=== PATIENT | male | born 1940 | race Caucasian/White ===

== ENCOUNTER 2018-08-23 13:41 | Emergency (ER) | payer MEDICARE, BC ==
[~2018-08-23 13:41] MED LIST: ADAL20KI2 SQ; ALLO100T70 PO; ATOR40TA69 PO; CAR6.25 PO; CELE-1 PO; DAPA10TA PO; DES100PT PO; GABA-547 PO; INSU100I36 SQ; LIR18IPT SUBQ; LOSA-51 PO; METF-450 PO; TEST1.25 TD
[2018-08-23] MEDS ORDERED: PRED20TA6 PO (13:55)
--- NOTE | 2018-08-23 13:58 | ER Report ---
History and Physical Time Seen By MD: 13:58 Hx. of Stated Complaint: pt presents withc/o an eye issue, sob and weakness for 3 days HPI/ROS CHIEF COMPLAINT: Weakness, shortness of breath, swelling under left eye HISTORY OF PRESENT ILLNESS: 78-year-old male patient presents to emergency room with complaint of weakness, shortness of breath and swelling in the left eye. Patient states this been going on for the last 3 days. He states that he's had problems with surgery on his eyelids. He states that he had a stitch which came out under the right eye. He states it is very similar to what he is expressing an of the left eye. He states it is tender to the touch. He denies having any fevers, chills, nausea, vomiting or diarrhea. Patient states he did have a salve which he put on it. He states that he did not bring that with him when he came up to [place]. Patient states she's also felt very short of breath since ar riving here. He also states she's felt very weak. He states he initially was able to walk around and felt pretty good. However he states that for the last couple days he's just been laying around. REVIEW OF SYSTEMS: Respiratory: As noted above Cardiovascular: No chest pain, no palpitations. Gastrointestinal: No vomiting, no abdominal pain. Musculoskeletal: No back pain. Allergies: Coded Allergies: codeine (Unverified Allergy, Unknown, 08/23/18) levofloxacin (Unverified Adverse Reaction, Unknown, 08/23/18) TENDON RUPTURE Home Meds Active Scripts Mupirocin Calcium (BACTROBAN) 15 Gm Cream..g., 1 BELL TP TID for 7 Days, #1 TUBE Prov:ROSSANA BENNETTP 08/23/18 Amoxicillin/Pot Clav 875-125 Mg Tab (AUGMENTIN 875-125 TABLET) 1 Each Tablet, 1 TAB PO Q12H, #20 TAB Prov:ROSSANA BENNETTP 08/23/18 Reported Medications Infliximab (REMICADE) 100 Mg Soln, 100 MG IV 08/23/18 Clopidogrel Bisulfate (PLAVIX) 75 Mg Tablet, 1 TAB PO QDAY, TAB 08/23/18 Prednisone (PREDNISONE) 20 Mg Tablet, 20 MG PO QDAY, TAB 08/23/18 Metformin Hcl (METFORMIN HCL) 500 Mg Tablet, 3 TAB PO DAILY, TAB 08/17/15 Atorvastatin Calcium (ATORVASTATIN CALCIUM) 40 Mg Tablet, 1 TAB PO QDAY, TAB TAKE ONE TABLET BY MOUTH ONCE A DAY AT BED TIME 08/10/14 Gabapentin (GABAPENTIN) 100 Mg Capsule, 200 MG PO QPM, CAPSULE 08/10/14 Liraglutide (VICTOZA 3-ARNAUD) 18 Mg/3 Ml Injs, 18 MG SUBQ DAILY 08/10/14 Carvedilol (CARVEDILOL) 6.25 Mg Tab, 6.25 MG PO BID, TAB TAKE 1 TABLET BY MOUTH TWICE A DAY 08/10/14 Allopurinol (ALLOPURINOL) 100 Mg Tablet, 100 MG PO QDAY, #10 TAB TAKE 1 TABLET BY MOUTH EVERY DAY 08/10/14 Celecoxib (CELEBREX) 200 Mg Capsule, 200 MG PO QDAY, CAPSULE TAKE 1 CAPSULE BY MOUTH DAILY 08/10/14 Desvenlafaxine Succinate (PRISTIQ ER) 100 Mg Tabcr, 100 MG PO QDAY 08/10/14 Insulin Detemir (LEVEMIR FLEXPEN) 100 Unit/1 Ml Insuln.pen, 50 UNIT SQ QPM 08/10/14 Losartan/Hydrochlorothiazide (LOSARTAN-HCTZ 50-12.5 MG TAB) 1 Each Tablet, 1 EACH PO QDAY 08/10/14 Discontinued Reported Medications Metformin Hcl (METFORMIN HCL) 500 Mg Tablet, 2 TAB PO HS, TAB 08/17/15 Dapagliflozin Propanediol (Farxiga) 10 Mg Tablet, 1 TAB PO QDAY 08/10/14 Adalimumab (HUMIRA) 20 Mg/0.4 Ml Kit, 80 MG SQ Q2WK, KIT 08/10/14 Past Medical/Surgical History Patient has a past medical history of blind in the left eye, GA, irregular heartbeat, ablation, hypertension, hyperlipidemia, Crohn's disease, kidney cyst, BPH, arthritis. Patient has surgical history of cardiac ablation, Which, Achilles tendon repair 2, eyelid surgery, femoral aneurysm repair, basal cell carcinoma removed. Reviewed Nurses Notes: Yes Hx Smoking: Yes Smoking Status: Former Smoker Hx Substance Use Disorder: No Hx Alcohol Use: No Constitutional Vital Sign - Last 24 Hours 08/23/18 08/23/18 08/23/18 08/23/18 13:47 13:51 13:56 14:00 Pulse 83 Resp 24 25 B/P (MAP) 156/105 (122) 150/89 (109) Pulse Ox 95 08/23/18 08/23/18 08/23/18 08/23/18 14:11 14:26 14:31 14:41 Pulse 79 76 ??? Resp 16 26 B/P (MAP) 140/85 (103) 08/23/18 08/23/18 08/23/18 08/23/18 14:56 15:00 15:11 15:26 Pulse 73 76 80 Resp 20 22 20 B/P (MAP) 129/77 (94) Pulse Ox 93 94 95 Physical Exam General Appearance: The patient is alert, has no immediate need for airway protection and no current signs of toxicity. Eyes: Patient does have what appears to be a pustule underneath the left eye, is tender to the touch. There is some swelling lateral to it. Respiratory: Chest is non tender, lungs are clear to auscultation. Cardiac: regular rate and rhythm Gastrointestinal: Abdomen is soft and non tender, no masses, bowel sounds normal. Musculoskeletal: Neck: Neck is supple and non tender. Extremities have full range of motion and are non tender. Skin: No rashes or lesions. DIFFERENTIAL DIAGNOSIS: After history and physical exam differential diagnosis was considered for shortness of breath including but not limited to pulmonary infectious process, COPD, asthma, pulmonary embolus and congestive heart failure. Medical Decision Making Data Points Result Diagram: 08/23/18 1412 08/23/18 1412 Laboratory Hematology Test 08/23/18 14:12 08/23/18 14:25 08/23/18 16:18 08/23/18 16:20 Red Blood Count 4.45 M/uL (4.00-5.60) Mean Corpuscular Volume 92.2 fL (80.0-96.0) Mean Corpuscular Hemoglobin 30.2 pg (26.0-33.0) Mean Corpuscular Hemoglobin Concent 32.7 g/dL (32.0-36.0) Red Cell Distribution Width 16.4 % (11.5-14.5) Mean Platelet Volume 9.0 fL (7.2-11.1) Neutrophils (%) (Auto) 87.9 % (39.4-72.5) Lymphocytes (%) (Auto) 5.2 % (17.6-49.6) Monocytes (%) (Auto) 5.8 % (4.1-12.4) Eosinophils (%) (Auto) 0.4 % (0.4-6.7) Basophils (%) (Auto) 0.7 % (0.3-1.4) Nucleated RBC Relative Count (auto) 0.0 /100WBC Neutrophils # (Auto) 13.3 K/uL (2.0-7.4) Lymphocytes # (Auto) 0.8 K/uL (1.3-3.6) Monocytes # (Auto) 0.9 K/uL (0.3-1.0) Eosinophils # (Auto) 0.1 K/uL (0.0-0.5) Basophils # (Auto) 0.1 K/uL (0.0-0.1) Nucleated RBC Absolute Count (auto) 0.00 K/uL Sodium Level 134 mmol/L (137-145) Potassium Level 3.8 mmol/L (3.5-5.0) Chloride Level 101 mmol/L (98-107) Carbon Dioxide Level 24 mmol/L (22-30) Blood Urea Nitrogen 31 mg/dl (9-21) Creatinine 1.20 mg/dl (0.66-1.25) Glomerular Filtration Rate Calc 58.9 Random Glucose 266 mg/dl (75-110) Calcium Level 8.8 mg/dl (8.4-10.2) Total Bilirubin 0.5 mg/dl (0.2-1.3) Aspartate Amino Transf (AST/SGOT) 17 U/L (0-35) Alanine Aminotransferase (ALT/SGPT) 28 U/L (0-56) Alkaline Phosphatase 80 U/L (0-126) Total Protein 6.4 g/dl (6.3-8.2) Albumin 3.3 g/dl (3.5-5.0) Prothrombin Time 12.4 seconds (12.0-14.4) Prothromb Time International Ratio 0.92 Activated Partial Thromboplast Time 25 seconds (23-35) Troponin I 0.038 ng/ml Urine Color Yellow Urine Clarity Slightly-cloudy Urine pH 5.0 pH (4.8-9.5) Urine Specific [place] 1.021 Urine Protein Negative mg/dL (NEGATIVE) Urine Glucose (UA) 150 mg/dL (NEGATIVE) Urine Ketones Trace mg/dL (NEGATIVE) Urine Blood Small (NEGATIVE) Urine Nitrite Negative (NEGATIVE) Urine Bilirubin Negative (NEGATIVE) Urine Urobilinogen Negative mg/dL (0.2-1.9) Urine Leukocyte Esterase Negative (NEGATIVE) Urine RBC <1 /HPF (0-2/HPF) Urine WBC 10 /HPF (0-5/HPF) Urine Squamous Epithelial Cells Few /LPF (</=FEW) Urine Bacteria Moderate /HPF (NONE-FEW) Urine Mucus None /HPF (NONE-FEW) Chemistry Test 08/23/18 14:12 08/23/18 14:25 08/23/18 16:18 08/23/18 16:20 White Blood Count 15.2 k/uL (4.5-11.0) Red Blood Count 4.45 M/uL (4.00-5.60) Hemoglobin 13.4 g/dL (14.0-18.0) Hematocrit 41.1 % (42.0-52.0) Mean Corpuscular Volume 92.2 fL (80.0-96.0) Mean Corpuscular Hemoglobin 30.2 pg (26.0-33.0) Mean Corpuscular Hemoglobin Concent 32.7 g/dL (32.0-36.0) Red Cell Distribution Width 16.4 % (11.5-14.5) Platelet Count 161 K/uL (150-450) Mean Platelet Volume 9.0 fL (7.2-11.1) Neutrophils (%) (Auto) 87.9 % (39.4-72.5) Lymphocytes (%) (Auto) 5.2 % (17.6-49.6) Monocytes (%) (Auto) 5.8 % (4.1-12.4) Eosinophils (%) (Auto) 0.4 % (0.4-6.7) Basophils (%) (Auto) 0.7 % (0.3-1.4) Nucleated RBC Relative Count (auto) 0.0 /100WBC Neutrophils # (Auto) 13.3 K/uL (2.0-7.4) Lymphocytes # (Auto) 0.8 K/uL (1.3-3.6) Monocytes # (Auto) 0.9 K/uL (0.3-1.0) Eosinophils # (Auto) 0.1 K/uL (0.0-0.5) Basophils # (Auto) 0.1 K/uL (0.0-0.1) Nucleated RBC Absolute Count (auto) 0.00 K/uL Glomerular Filtration Rate Calc 58.9 Calcium Level 8.8 mg/dl (8.4-10.2) Total Bilirubin 0.5 mg/dl (0.2-1.3) Aspartate Amino Transf (AST/SGOT) 17 U/L (0-35) Alanine Aminotransferase (ALT/SGPT) 28 U/L (0-56) Alkaline Phosphatase 80 U/L (0-126) Total Protein 6.4 g/dl (6.3-8.2) Albumin 3.3 g/dl (3.5-5.0) Prothrombin Time 12.4 seconds (12.0-14.4) Prothromb Time International Ratio 0.92 Activated Partial Thromboplast Time 25 seconds (23-35) Troponin I 0.038 ng/ml Urine Color Yellow Urine Clarity Slightly-cloudy Urine pH 5.0 pH (4.8-9.5) Urine Specific [place] 1.021 Urine Protein Negative mg/dL (NEGATIVE) Urine Glucose (UA) 150 mg/dL (NEGATIVE) Urine Ketones Trace mg/dL (NEGATIVE) Urine Blood Small (NEGATIVE) Urine Nitrite Negative (NEGATIVE) Urine Bilirubin Negative (NEGATIVE) Urine Urobilinogen Negative mg/dL (0.2-1.9) Urine Leukocyte Esterase Negative (NEGATIVE) Urine RBC <1 /HPF (0-2/HPF) Urine WBC 10 /HPF (0-5/HPF) Urine Squamous Epithelial Cells Few /LPF (</=FEW) Urine Bacteria Moderate /HPF (NONE-FEW) Urine Mucus None /HPF (NONE-FEW) Coagulation Test 08/23/18 14:25 Prothrombin Time 12.4 seconds Prothromb Time International Ratio 0.92 Activated Partial Thromboplast Time 25 seconds Urinalysis Test 08/23/18 16:20 Urine Color Yellow Urine Clarity Slightly-cloudy Urine pH 5.0 pH (4.8-9.5) Urine Specific Kinsey 1.021 Urine Protein Negative mg/dL (NEGATIVE) Urine Glucose (UA) 150 mg/dL (NEGATIVE) Urine Ketones Trace mg/dL (NEGATIVE) Urine Blood Small (NEGATIVE) Urine Nitrite Negative (NEGATIVE) Urine Bilirubin Negative (NEGATIVE) Urine Urobilinogen Negative mg/dL (0.2-1.9) Urine Leukocyte Esterase Negative (NEGATIVE) Urine RBC <1 /HPF (0-2/HPF) Urine WBC 10 /HPF (0-5/HPF) Urine Squamous Epithelial Cells Few /LPF (</=FEW) Urine Bacteria Moderate /HPF (NONE-FEW) Urine Mucus None /HPF (NONE-FEW) EKG/Imaging EKG Interpretation 12 lead EKG: Rhythm: Accelerated junctional rhythm with a ventricular rate of 77 bpm [place]: normal QRS: normal ST segments: Flattened T waves in V5 and V6. Imaging EXAMINATION: CT head without IV contrast HISTORY: Fall. Hit head. TECHNIQUE: Axial CT images of the head were obtained from the vertex to the skull base without IV contrast, with coronal and sagittal 2D reconstructed images. One of the following dose optimization techniques was utilized in the performance of this exam: Automated exposure control; adjustment of the mA and/or kV according to the patient's size; or use of an iterative reconstruction technique. Specific details can be referenced in the facility's radiology CT exam operational policy. COMPARISON: None. FINDINGS: Small region of chronic encephalomalacia in the left parietal lobe, compatible with old infarct. There is mild generalized parenchymal volume loss with additional patchy low attenuation in the deep white matter, compatible with chronic small vessel ischemic change. Small old lacunar infarct in the left cerebellar hemisphere. Intracranial vascular calcifications. No CT evidence of intracranial hemorrhage, mass lesion, or acute infarct. No midline shift or extra-axial fluid collections. Enamorado-white differentiation is otherwise maintained. The calvarium is intact. The paranasal sinuses and mastoid air cells are unopacified. Superficial soft tissue swelling surrounds the left orbit, without underlying orbital fracture. There is a small metallic foreign body present in the soft tissues overlying the right frontal calvarium. IMPRESSION: 1. No evidence of intracranial hemorrhage or skull fracture. 2. 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 There is mild generalized parenchymal volume loss. 3. Superficial soft tissue swelling surrounds the left orbit, without orbital fracture. 4. Small metallic foreign body in the superficial soft tissues overlying the right frontal calvarium. This may be chronic. Report Dictated By: Silvano Perera MD at 08/23/2018 3:53 PM Report E-Signed By: Silvano Perera MD at 08/23/2018 3:58 PM Exam type: CHEST PA AND LAT History: Chest pain, shortness of breath Comparison: None. Findings: There are sternotomy sutures present. Patient is rotated towards the right. There is no evidence of focal infiltrates pleural effusions or pulmonary edema. No evidence of a pneumothorax or pneumomediastinum. Cardiac silhouette upper limits of normal in size. There are extensive spondylotic changes of the thoracic spine IMPRESSION: 1. Borderline cardiomegaly No evidence of pulmonary consolidation Report Dictated By: Talita Burton MD at 08/23/2018 3:13 PM Report E-Signed By: Talita Burton MD at 08/23/2018 3:15 PM ED Course/Re-evaluation ED Course Patient was admitted to an exam room, history and physical were obtained. Differential diagnoses were considered. On examination lungs are clear, heart is regular, abdomen soft nontender. A abscess appears to be performed under the right eye. I did press on that which caused pain. There is no exudate. A CBC, CMP, urinalysis, EKG, troponin, chest x-ray, CT scan of the head were done. Patient had an elevated white count of 15,000 with left shift, CMP was unre markable, urinalysis also was negative. Troponin initially was 0.039. There is in the indeterminate range. EKG showed accelerated junctional rhythm. Patient does have a history of 3 ablations I believe is likely the cause of the junctional rhythm. Chest x-ray was negative and CT scan of the head was negative. I did opt to repeat the troponin. At 2 hours the troponin was 0.038. With it being negative, the elevated white count and abscess of believe that we are likely looking at an infection which is causing the patient feels so weak. We will go ahead and start him on Augmentin. He is to take that for the next 10 days. He is return to emergency room if condition worsens. He is to increase his fluid intake and get plenty of rest. Patient verbalized understanding and agreement with plan. Decision to Disposition Date: Aug 23, 2018 Decision to Disposition Time: 17:44 Depart Departure Latest Vital Signs Vital Signs Date Time Temp Pulse Resp B/P (MAP) Pulse Ox O2 Delivery O2 Flow Rate FiO2 08/23/18 15:26 80 20 95 08/23/18 15:00 129/77 (94) Impression: Primary Impression: Abscess of eyelid Condition: Improved Disposition: HOME OR SELF-CARE New Scripts Mupirocin Calcium (BACTROBAN) 15 Gm Cream..g. 1 BELL TP TID for 7 Days, #1 TUBE Prov: ROSSANA BENNETT 08/23/18 Amoxicillin/Pot Clav 875-125 Mg Tab (AUGMENTIN 875-125 TABLET) 1 Each Tablet 1 TAB PO Q12H, #20 TAB Prov: ROSSANA BENNETT 08/23/18 Patient Instructions: Abscess (ED) Additional Instructions: Get plenty of rest. Increase fluid intake. Take Tylenol as needed for pain. Limit activity by pain. Take your medications as prescribed. Return to the ER if condition worsens. Follow up with your primary care provider when you return home. Problem Qualifiers Primary Impression: Abscess of eyelid Laterality: left Qualified Codes: H00.036 - Abscess of eyelid left eye, unspecified eyelid ROSSANA BENNETT Aug 23, 2018 13:58
[2018-08-23] MEDS ORDERED: CLOP75TA43 PO (14:00)
[2018-08-23] MEDS ORDERED: INF100I IV (14:05)
[2018-08-23] MEDS ORDERED: NS(*) 0.9% 500 ML BAG 500 ML IV ONE (14:23)
[2018-08-23 14:29] LABS: PLATELET COUNT, AUTOMATED 161 K/uL (150-450)
--- NOTE | 2018-08-23 14:59 | EKG ---
FACILITY: [facility] PATIENT NAME: KARIN MENDOZA : [id number] MR: [id number] V: [id number] EXAM DATE: ORDERING PHYSICIAN: ROSSANA BENNETT TECHNOLOGIST: PIYUSH Fajardo Reason : SOB Blood Pressure : / mmHG Vent. Rate : 077 BPM Atrial Rate : 241 BPM P-R Int : 000 ms QRS Dur : 094 ms QT Int : 388 ms P-R-T Axes : 000 014 129 degrees QTc Int : 439 ms Accelerated Junctional rhythm Inferior infarct , age undetermined Abnormal ECG No previous ECGs available Confirmed by Mehdi Childs ([id number]) on 08/23/2018 6:45:06 PM Referred By: DEBRA Confirmed By:Mehdi Hernandez
--- NOTE | 2018-08-23 15:19 | RADIOLOGY IMAGING REPORT ---
FACILITY: [facility] PATIENT NAME: Sabino Baum : 1940 MR: [id number] V: [id number] EXAM DATE: ORDERING PHYSICIAN: ROSSANA BENNETT TECHNOLOGIST: [place] [facility] [place] : 1940 Visit/Account:[id number] Date of Sevice: 08/23/2018 Exam type: CHEST PA AND LAT History: Chest pain, shortness of breath Comparison: None. Findings: There are sternotomy sutures present. Patient is rotated towards the right. There is no evidence of focal infiltrates pleural effusions or pulmonary edema. No evidence of a pneumothorax or pneumomedi astinum. Cardiac silhouette upper limits of normal in size. There are extensive spondylotic changes of the thoracic spine IMPRESSION: 1. Borderline cardiomegaly No evidence of pulmonary consolidation Report Dictated By: Talita Burton MD at 08/23/2018 3:13 PM Report E-Signed By: Talita Burton MD at 08/23/2018 3:15 PM WSN:[email or web address]
[2018-08-23 15:52] LABS: INR 0.92
--- NOTE | 2018-08-23 16:02 | RADIOLOGY IMAGING REPORT ---
FACILITY: [facility] [place] PATIENT NAME: Sabino Baum : 1940 MR: [id number] V: [id number] EXAM DATE: ORDERING PHYSICIAN: ROSSANA BENNETT TECHNOLOGIST: Location: Patient: Sabino Baum : 1940 Visit/Account:[id number] Date of Sevice: 08/23/2018 EXAMINATION: CT head without IV contrast HISTORY: Fall. Hit head. TECHNIQUE: Axial CT images of the head were obtained from the vertex to the skull base without IV c ontrast, with coronal and sagittal 2D reconstructed images. One of the following dose optimization techniques was utilized in the performance of this exam: Autom ated exposure control; adjustment of the mA and/or kV according to the patient's size; or use of an i terative reconstruction technique. Specific details can be referenced in the facility's radiology C T exam operational policy. COMPARISON: None. FINDINGS: Small region of chronic encephalomalacia in the left parietal lobe, compatible with old infarct. The re is mild generalized parenchymal volume loss with additional patchy low attenuation in the deep whi te matter, compatible with chronic small vessel ischemic change. Small old lacunar infarct in the le ft cerebellar hemisphere. Intracranial vascular calcifications. No CT evidence of intracranial hemorrhage, mass lesion, or acute infarct. No midline shift or extra-a xial fluid collections. Enamorado-white differentiation is otherwise maintained. The calvarium is intact. The paranasal sinuses and mastoid air cells are unopacified. Superficial so ft tissue swelling surrounds the left orbit, without underlying orbital fracture. There is a small m etallic foreign body present in the soft tissues overlying the right frontal calvarium. IMPRESSION: 1. No evidence of intracranial hemorrhage or skull fracture. 2. 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 There is mild generalized parenchymal volume loss. 3. Superficial soft tissue swelling surrounds the left orbit, without orbital fracture. 4. Small metallic foreign body in the superficial soft tissues overlying the right frontal calvarium . This may be chronic. Report Dictated By: Silvano Perera MD at 08/23/2018 3:53 PM Report E-Signed By: Silvano Perera MD at 08/23/2018 3:58 PM WSN:[email or web address]
[2018-08-23 16:30] VITALS: BP 109/87
[2018-08-23] MEDS ORDERED: MUPI15CR10 TP (17:42)
[2018-08-23] MEDS ORDERED: AMOX-559 PO (17:42)
== END 2018-08-23 17:50 | disposition home or self-care (01) ==
LOC: ER 14:04
DX: H00.036 Abscess of eyelid left eye, unspecified eyelid (principal); H54.7 Unspecified visual loss
CPT/HCPCS: 36415; 70450; 71046; 81001; 84484; 85025; 85610; 85730; 87077; 87088; 87186; 93005; 96360; 96361; 99284; J7040; 82040; 82247; 82310; 82374; 82435; 82565; 82947; 84075; 84132; 84155; 84295; 84450; 84460; 84520